=== PATIENT | female | born 1985 ===

== ENCOUNTER 2019-03-09 19:02 | Observation (INO) | payer MEDICAID ==
[2019-03-09 19:02] VITALS: BMI 24.7
[2019-03-09] MEDS ORDERED: Sucralfate 1 gm/10 ml Oral Susp UD PO STA (19:26)
--- NOTE | 2019-03-09 19:26 | C.PDOC ---
History Of Present Illness 33 year old female presents to the ED c/o epigastric abdominal pain associated with diarrhea that started 4 hours [employer]. Patient reports she has history of gastritis. Patient denies fever, chills, vomit, back pain, dysuria, rash, recent travel, sick contacts. Chief Complaint (Nursing): Abdominal Pain History Per: Patient History/Exam Limitations: no limitations Onset/Duration Of Symptoms: Hrs (4) Current Symptoms Are (Timing): Still Present Location Of Pain/Discomfort: Epigastric Radiation Of Pain To:: None Quality Of Discomfort: "Pain" Associated Symptoms: Diarrhea. denies: Nausea, Vomiting, Constipation, Urinary Symptoms Recent travel outside of the [place]: No Additional History Per: Patient Past Medical History Reviewed: Historical Data, Nursing Documentation, Vital Signs Vital Signs: Last Vital Signs Temp 99.1 F 03/09/19 19:13 Pulse 84 03/09/19 19:13 Resp 18 03/09/19 19:13 BP 123/83 03/09/19 19:13 Pulse Ox 100 03/09/19 19:13 - Medical History PMH: Gastritis Denies: Chronic Kidney Disease Surgical History: No Surg Hx - [facility] Procedures LOW CERVICAL (06/25/14) Family History: States: Unknown Family Hx - Social History Hx Tobacco Use: No Hx Alcohol Use: No Hx Substance Use: No - Immunization History Hx Tetanus Toxoid Vaccination: No Hx Influenza Vaccination: No Hx Pneumococcal Vaccination: No Review Of Systems Constitutional: Negative for: Fever, Chills Respiratory: Negative for: Shortness of Breath Gastrointestinal: Positive for: Abdominal Pain, Diarrhea. Negative for: Nausea, Vomiting Genitourinary: Negative for: Dysuria Musculoskeletal: Negative for: Back Pain Skin: Negative for: Rash Physical Exam - Physical Exam Appears: Non-toxic, No Acute Distress Skin: Normal Color, Warm, Dry Head: Atraumatic, Normacephalic Eye(s): bilateral: Normal Inspection Oral Mucosa: Moist Neck: Normal ROM, Supple Chest: Symmetrical Cardiovascular: Rhythm Regular Respiratory: Normal Breath Sounds, No Rales, No Rhonchi, No Wheezing Gastrointestinal/Abdominal: Soft, Tenderness (epigastric and RUQ), No Guarding, No Rebound Back: No CVA Tenderness Extremity: Normal ROM, No Tenderness, No Swelling Neurological/Psych: Oriented x3, Normal Speech, Normal Cognition Gait: Steady ED Course And Treatment - Laboratory Results Result Diagrams: 03/09/19 20:03 03/09/19 20:03 O2 Sat by Pulse Oximetry: 100 (ON RA) Pulse Ox Interpretation: Normal - CT Scan/US CT abd/pelvis Other Rad Studies (CT/US): Read By Radiologist, Radiology Report Reviewed CT/US Interpretation: EXAM: CT Abdomen and Pelvis with IV contrast. CLINICAL HISTORY: Epigastric pain. TECHNIQUE: Axial computed tomography images of the abdomen and pelvis with intravenous contrast. DLP 389.03. CONTRAST: With; 100MLS VISI 320. COMPARISON: None provided. FINDINGS: LUNG BASES: The lung bases appear clear. No pleural effusions are seen. LIVER: Unremarkable. GALLBLADDER AND BILE DUCTS: The gallbladder appears within normal limits. No radioopaque gallstones are seen. No biliary ductal dilatation is evident. PANCREAS: Unremarkable. SPLEEN: Unremarkable. ADRENAL GLANDS: Unremarkable. KIDNEYS, URETERS, AND BLADDER: The kidneys appear within normal limits. There is no hydronephrosis or hydroureter. No urinary calculi are seen. STOMACH AND BOWEL: Multiple dilated proximal jejunal loops of bowel are present, without discrete transition zone. Findings may be on the basis of small bowel ileus, however, short interval continued follow-up is recommended. No evidence suggesting enteritis or colitis. APPENDIX: No evidence of acute appendicitis on CT examination. PERITONEUM: No free fluid. No free air. LYMPH NODES: No lymphadenopathy is evident. REPRODUCTIVE: Unremarkable as visualized. VASCULATURE: No evidence of abdominal aortic aneurysm. BONES: No aggressive appearing osseous lesion. No acute osseous pathology evident. IMPRESSION: Dilatation of multiple proximal jejunal loops of bowel, without discrete transition zone. Findings may be related to ileus, however, short interval follow-up is recommended. . Electronically signed on Mar 09, 2019 10:33:46 PM EDT by: Teodora Sales M.D., Certified by [facility], [facility] Medical Decision Making Medical Decision Making: Plan: * CT abd/pelvis * Labs * Carafate 1 gm PO * Protonix 40 mg IVP * IV fluids * UA Disposition Discussed With : Jose Mohamud Doctor Will See Patient In The: Hospital Counseled Patient/Family Regarding: Diagnosis - Disposition Disposition: HOSPITALIZED Disposition Time: 23:12 Condition: STABLE Forms: [employer] ([place]an) - POA Present On Arrival: None - Clinical Impression Clinical Impression: Abdominal pain, Ileus, unspecified - Scribe Statement The provider has reviewed the documentation as recorded by the Scribe Rachid Antony All medical record entries made by the Narendraibe were at my direction and personally dictated by me. I have reviewed the chart and agree that the record accurately reflects my personal performance of the history, physical exam, medical decision making, and the department course for this patient. I have also personally directed, reviewed, and agree with the discharge instructions and disposition.
[2019-03-09] MEDS: Sodium Chloride 0.9% 1,000 ML IV ONE (19:30)
[2019-03-09 20:08] LABS: BASO # 0.1 K/uL (0.0-0.2); BASO % 0.8 % (0.0-2.0); EOS # 0.2 K/uL (0.0-0.7); EOS % 2.1 % (0.0-4.0); HEMOGLOBIN 14.3 g/dL (11.0-16.0); LYMPH # 1.5 K/uL (1.0-4.3); LYMPH % 20.9 % (20.0-40.0); MEAN CORPUSCULAR HEMOGLOBIN 26.7 pg (27.0-31.0); MEAN CORPUSCULAR HGB CONC 32.3 g/dL (33.0-37.0); MEAN PLATELET VOLUME 9.2 fL (7.2-11.7); MONO # 0.6 K/uL (0.0-0.8); MONO % 8.7 % (0.0-10.0); NEUT # 4.9 K/uL (1.8-7.0); NEUT % 67.5 % (50.0-75.0); RBC 5.38 Mil/uL (3.80-5.20); RED CELL DISTRIBUTION WIDTH 12.7 % (11.5-14.5); WHITE BLOOD COUNT 7.2 K/uL (4.8-10.8)
[2019-03-09 20:14] LABS: MEAN CELL VOLUME 82.5 fL (81.0-99.0)
[2019-03-09 20:25] LABS: HCG,QUALITATIVE URINE NEGATIVE (NEGATIVE)
[2019-03-09 20:29] LABS: SQUAMOUS EPITHIAL 7 /hpf (0-5); URINE BACTERIA RARE (<OCC)
[2019-03-09 20:33] LABS: URINE BILIRUBIN NEGATIVE (NEGATIVE); URINE BLOOD NEGATIVE (NEGATIVE); URINE CLARITY CLEAR (Clear); URINE COLOR YELLOW (YELLOW); URINE GLUCOSE (UA) NEGATIVE (Normal); URINE LEUKOCYTE ESTERASE NEGATIVE Leu/uL (Negative); URINE PROTEIN NEGATIVE (NEGATIVE); URINE UROBILINOGEN 0.2 mg/dL (0.2-1.0)
[2019-03-09 20:35] LABS: ALB/GLOB RATIO 1.4 (1.0-2.1); ALBUMIN 4.8 g/dL (3.5-5.0); ALT/SGPT 23 U/L (9-52); AST/SGOT 40 U/L (14-36); BLOOD UREA NITROGEN 10 mg/dL (7-17); CALCIUM 9.6 mg/dl (8.6-10.4); GFR NON-AFRICAN AMERICAN > 60; LIPASE 58 U/L (23-300)
[2019-03-09] MEDS ORDERED: Iodixanol 320 MG/ML 100 ML BOTTLE IV ONE (20:59)
[2019-03-09] MEDS ORDERED: Sodium Chloride 0.9% 1,000 ML IV SCH (23:45)
[2019-03-09 23:55] VITALS: RESP 20
--- NOTE | 2019-03-10 00:01 | CP.PCM.HP ---
<Kaht Ma - Last Filed: 03/10/19 00:14> History of Present Illness - History of Present Illness History of Present Illness: cc: "stomach ache" Ms. Morris is a Japanese speaking 33 year old female with a PMH of gastritis here today after multiple boughts of vomiting and diarrhea over the last three days of worsening epigastric pain. She took her home omeprazole daily, but the epigastric pain worsened to 8/10 today. She attempted to eat breakfast and lunch since she was hungry, but vomited within 30 min of meal completion. Both episodes were NBNB, but only worsened her epigastric pain. She vomited once more upon insertion of her NGT. 4 hours [employer], she had 2 episodes of non-bloody watery diarrhea which prompted her to come in. Denies headache, chest pain, palpitations, constipation, numbness, tingling, dizziness. PMH: gastritis Med: omeprazole 20mg po daily All: PCN - rash PSxHx: C/section x2, tooth extraction FamHx: mother - osteoporosis SocHx: social EtOH, denies ever tobacco, illicit drugs. Lives with and 2 children. Works in [employer]. Present on Admission - Present on Admission Any Indicators Present on Admission: No Review of Systems - Constitutional Constitutional: Chills, Headache. absent: Fever, Weakness - EENT Eyes: absent: Blurred Vision, Diplopia Ears: absent: Dizziness Nose/Mouth/Throat: absent: Sore Throat - Cardiovascular Cardiovascular: absent: Chest Pain, Claudication, Palpitations - Respiratory Respiratory: absent: Cough, Dyspnea - Gastrointestinal Gastrointestinal: Abdominal Pain, Diarrhea, Nausea, Vomiting. absent: Coffee Ground Emesis, Constipation, Hematemesis, Melena - Genitourinary Genitourinary: absent: Difficulty Urinating, Dysuria - Musculoskeletal Musculoskeletal: absent: Arthralgias, Back Pain, Myalgias, Numbness, Tingling - Integumentary Integumentary: absent: Alopecia, Bleeding Lesions, Rash - Neurological Neurological: absent: Convulsions, Numbness, Tingling Past Patient History - Infectious Disease Hx of Infectious Diseases: None - Past Social History Smoking Status: Never Smoked Alcohol: Social Drugs: Denies Home Situation {Lives}: With Family - CARDIAC Hx Cardiac Disorders: No - PULMONARY Hx Respiratory Disorders: No - NEUROLOGICAL Hx Neurological Disorder: No - HEENT Hx HEENT Problems: No - RENAL Hx Chronic Kidney Disease: No - ENDOCRINE/METABOLIC Hx Endocrine Disorders: No - HEMATOLOGICAL/ONCOLOGICAL Hx Blood Disorders: No - INTEGUMENTARY Hx Dermatological Problems: No - MUSCULOSKELETAL/RHEUMATOLOGICAL Hx Musculoskeletal Disorders: No - GASTROINTESTINAL Hx Gastritis: Yes - GENITOURINARY/GYNECOLOGICAL Hx Genitourinary Disorders: No - PSYCHIATRIC Hx Substance Use: No - SURGICAL HISTORY Hx Surgeries: Yes Hx Section: Yes (X2) Other/Comment: WISDOM TOOTH REMOVAL - ANESTHESIA Hx Anesthesia: Yes Meds Allergies/Adverse Reactions: Allergies Allergy/AdvReac Type Severity Reaction Status Date / Time Penicillins Allergy RASH Verified 03/09/19 19:16 Physical Exam - Constitutional Appears: Non-toxic, No Acute Distress - Head Exam Head Exam: ATRAUMATIC, NORMOCEPHALIC - Eye Exam Eye Exam: EOMI, PERRL Pupil Exam: NORMAL ACCOMODATION Additional comments: injected, tearing - ENT Exam ENT Exam: Mucous Membranes Dry Additional comments: NGT on intermittent suction in R nostril - Neck Exam Neck exam: Negative for: Lymphadenopathy, Tenderness, Thyromegaly - Respiratory Exam Respiratory Exam: Clear to Auscultation Bilateral, NORMAL BREATHING PATTERN. absent: Rales, Rhonchi, Wheezes - Cardiovascular Exam Cardiovascular Exam: REGULAR RHYTHM, +S1, +S2. absent: Systolic Murmur - GI/Abdominal Exam GI & Abdominal Exam: Hyperactive Bowel Sounds, Soft, Tenderness. absent: Distended, Guarding, Rebound Additional comments: diminished TTP in epigastric (recent morphine) - Extremities Exam Extremities exam: Positive for: normal capillary refill, pedal pulses present - Back Exam Back exam: absent: CVA tenderness (L), CVA tenderness (R) - Neurological Exam Neurological exam: Alert, CN II-XII Intact, Oriented x3, Reflexes Normal - Psychiatric Exam Psychiatric exam: Normal Affect, Normal Mood - Skin Skin Exam: Dry, Intact, Normal Color, Warm Results - Vital Signs Recent Vital Signs: Last Vital Signs Temp 97.9 F 03/09/19 23:55 Pulse 83 03/09/19 23:55 Resp 20 03/09/19 23:55 BP 110/75 03/09/19 23:55 Pulse Ox 97 03/09/19 23:55 - Labs Result Diagrams: 03/09/19 20:03 03/09/19 20:03 Labs: Laboratory Results - last 24 hr 03/09/19 03/09/19 03/09/19 20:03 20:03 20:03 WBC 7.2 RBC 5.38 H Hgb 14.3 Hct 44.4 MCV 82.5 D MCH 26.7 L MCHC 32.3 L RDW 12.7 Plt Count 265 MPV 9.2 Neut % (Auto) 67.5 Lymph % (Auto) 20.9 [place] % (Auto) 8.7 Eos % (Auto) 2.1 Baso % (Auto) 0.8 Neut # (Auto) 4.9 Lymph # (Auto) 1.5 [place] # (Auto) 0.6 Eos # (Auto) 0.2 Baso # (Auto) 0.1 Sodium 138 Potassium 3.5 L Chloride 105 Carbon Dioxide 24 Anion Gap 12 BUN 10 Creatinine 0.8 Est GFR ( Amer) > 60 Est GFR (Non-Af Amer) > 60 Random Glucose 90 Calcium 9.6 Total Bilirubin 0.5 AST 40 H ALT 23 Alkaline Phosphatase 86 Total Protein 8.2 Albumin 4.8 Globulin 3.4 Albumin/Globulin Ratio 1.4 Lipase 58 Urine Color Yellow Urine Clarity Clear Urine pH 6.0 Ur Specific [place] > 1.030 H Urine Protein Negative Urine Glucose (UA) Negative Urine Ketones Negative Urine Blood Negative Urine Nitrate Negative Urine Bilirubin Negative Urine Urobilinogen 0.2 Ur Leukocyte Esterase Negative Urine WBC (Auto) 1 Urine RBC (Auto) 1 Ur Squamous Epith Cells 7 H Urine Bacteria Rare Urine HCG, Qual Negative Assessment & Plan - Assessment and Plan (Free Text) Assessment: 33yo F PMH gastritis admitted for SBO. Plan: Small Bowel Obstruction CT A/P with IV contrast (03/09): pending read. prelim: dilation of multiple proximal jejunal loops with transition zone UA elevated specific gravity Carafate 1gm po, Protonix 40mg IVP, Toradol 30mg IVP, Morphine 2mg IVP, 1L NS given in ED - f/u CXR to confirm NGT placement - NGT on intermittent suction in place - NS@115 for slightly higher than maintenance - Reglan 10mg IVP q6 prn - Toradol 30mg IVP q6 prn - abx not started at this time since vitals stable and no WBC mounted - General Surgery consulted: Dr. Guido - help appreciated PPx - DVT: SCDs - GI: Protonix 40mg IVP daily - Diet: NPO - IVF: NS@115 d/w Dr. Oneida Ma PGY-1 - Date & Time Date: 03/09/19 Time: 23:30 <Jose Mohamud - Last Filed: 03/10/19 07:02> Results - Vital Signs Recent Vital Signs: Last Vital Signs Temp 97.9 F 03/10/19 00:50 Pulse 79 03/10/19 00:50 Resp 20 03/10/19 00:50 BP 120/80 03/10/19 00:50 Pulse Ox 99 03/10/19 04:38 - Labs Result Diagrams: 03/09/19 20:03 03/09/19 20:03 Labs: Laboratory Results - last 24 hr 03/09/19 03/09/19 03/09/19 20:03 20:03 20:03 WBC 7.2 RBC 5.38 H Hgb 14.3 Hct 44.4 MCV 82.5 D MCH 26.7 L MCHC 32.3 L RDW 12.7 Plt Count 265 MPV 9.2 Neut % (Auto) 67.5 Lymph % (Auto) 20.9 [place] % (Auto) 8.7 Eos % (Auto) 2.1 Baso % (Auto) 0.8 Neut # (Auto) 4.9 Lymph # (Auto) 1.5 [place] # (Auto) 0.6 Eos # (Auto) 0.2 Baso # (Auto) 0.1 Sodium 138 Potassium 3.5 L Chloride 105 Carbon Dioxide 24 Anion Gap 12 BUN 10 Creatinine 0.8 Est GFR ( Amer) > 60 Est GFR (Non-Af Amer) > 60 Random Glucose 90 Calcium 9.6 Total Bilirubin 0.5 AST 40 H ALT 23 Alkaline Phosphatase 86 Total Protein 8.2 Albumin 4.8 Globulin 3.4 Albumin/Globulin Ratio 1.4 Lipase 58 Urine Color Yellow Urine Clarity Clear Urine pH 6.0 Ur Specific [place] > 1.030 H Urine Protein Negative Urine Glucose (UA) Negative Urine Ketones Negative Urine Blood Negative Urine Nitrate Negative Urine Bilirubin Negative Urine Urobilinogen 0.2 Ur Leukocyte Esterase Negative Urine WBC (Auto) 1 Urine RBC (Auto) 1 Ur Squamous Epith Cells 7 H Urine Bacteria Rare Urine HCG, Qual Negative Assessment & Plan - Date & Time Date: 03/10/19 (I have seen and examined the patient. I agree with the findings and plan of care as documented by Dr. Ma. SBO. NGT placed in ED. Symptomatic treatment. Consult to surgery. Monitor for acute changes.) Time: 07:01 Attending/Attestation - Attestation I have personally seen and examined this patient.: Yes I have fully participated in the care of the patient.: Yes I have reviewed all pertinent clinical information: Yes
--- NOTE | 2019-03-10 02:54 | CP.PCM.CON ---
History of Present Illness - History of Present Illness History of Present Illness: Surgery: DR. Guido Reason for consult: ileus on CT scan HPI: Patient is a 33 y/o female who presents with epigastric pain for the past 24hrs. She states the pain progressively got worse and was associated with 3 episodes of nonbloody emesis post meals and nonbloody diarrhea x2 which prompted ER visit. She denies strange food types or sick contacts. She reports associated nausea. Denied f/c. She reports a history of gastritis which she takes omeprazole for chronically however denies prior EGD or colonoscopy. Currently, the patient states her symptoms have completely resolved and feels better. Only pain is throat due to NGT. ED course: patient underwent CT scan which showed dilated proximal bowel, no colitis enteritis or SBO. Finding consistent with ileus. NGT was inserted which induced vomiting and is currently draining clear bilious fluid apprxm 50cc in cannister at time of exam. PMH: gastritis PSH: cesction x2, tooth extraction Social: denies toxic habits Review of Systems - Constitutional Constitutional: absent: Anorexia, Fever - EENT Eyes: absent: Blurred Vision, Change in Vision Nose/Mouth/Throat: absent: Nasal Congestion, Nose Pain - Cardiovascular Cardiovascular: absent: Chest Pain, Dyspnea - Respiratory Respiratory: absent: Cough, Wheezing - Gastrointestinal Gastrointestinal: Abdominal Pain, Diarrhea, Heartburn, Loose Stools, Nausea, Vomiting. absent: Belching, Bloating, Excessive Flatus, Hematemesis, Hematochezia - Genitourinary Genitourinary: absent: Hematuria, Pyuria - Musculoskeletal Musculoskeletal: absent: Myalgias, Tingling - Integumentary Integumentary: absent: Acne, Alopecia - Neurological Neurological: absent: Disequilibrium, Dizziness - Psychiatric Psychiatric: absent: Confusion, Depression - Endocrine Endocrine: absent: Polyphagia, Polyuria - Hematologic/Lymphatic Hematologic: absent: Easy Bleeding, Easy Bruising Past Patient History - Infectious Disease Hx of Infectious Diseases: None - Past Social History Smoking Status: Never Smoked Alcohol: Social Drugs: Denies Home Situation {Lives}: With Family - CARDIAC Hx Cardiac Disorders: No - PULMONARY Hx Respiratory Disorders: No - NEUROLOGICAL Hx Neurological Disorder: No - HEENT Hx HEENT Problems: No - RENAL Hx Chronic Kidney Disease: No - ENDOCRINE/METABOLIC Hx Endocrine Disorders: No - HEMATOLOGICAL/ONCOLOGICAL Hx Blood Disorders: No - INTEGUMENTARY Hx Dermatological Problems: No - MUSCULOSKELETAL/RHEUMATOLOGICAL Hx Musculoskeletal Disorders: No - GASTROINTESTINAL Hx Gastritis: Yes - GENITOURINARY/GYNECOLOGICAL Hx Genitourinary Disorders: No - PSYCHIATRIC Hx Substance Use: No - SURGICAL HISTORY Hx Surgeries: Yes Hx Section: Yes (X2) Other/Comment: WISDOM TOOTH REMOVAL - ANESTHESIA Hx Anesthesia: Yes Meds Allergies/Adverse Reactions: Allergies Allergy/AdvReac Type Severity Reaction Status Date / Time Penicillins Allergy RASH Verified 03/09/19 19:16 - Medications Medications: Current Medications Sodium Chloride (Sodium Chloride 0.9%) 1,000 mls @ 100 mls/hr IV .Q10H ONE Stop: 03/10/19 05:24 Last Admin: 03/09/19 19:30 Dose: 100 mls/hr Sodium Chloride (Sodium Chloride 0.9%) 1,000 mls @ 115 mls/hr IV .[id number] [facility] Last Admin: 03/09/19 23:55 Dose: 115 mls/hr Ketorolac Tromethamine (Toradol) 30 mg IVP Q6 PRN PRN Reason: Pain, moderate (4-7) Metoclopramide HCl (Reglan) 10 mg IVP Q6H PRN PRN Reason: Nausea/Vomiting Pantoprazole Sodium (Protonix Inj) 40 mg IVP DAILY [facility] Physical Exam - Constitutional Appears: Non-toxic, No Acute Distress - Head Exam Head Exam: ATRAUMATIC, NORMOCEPHALIC Additional comments: NGT inserted - Eye Exam Eye Exam: EOMI - ENT Exam ENT Exam: Mucous Membranes Moist - Respiratory Exam Respiratory Exam: NORMAL BREATHING PATTERN. absent: Respiratory Distress - Cardiovascular Exam Cardiovascular Exam: REGULAR RHYTHM. absent: Tachycardia - GI/Abdominal Exam GI & Abdominal Exam: Soft. absent: Distended, Guarding, Hernia, Rebound, Rigid, Tenderness Additional comments: scar well healed - Extremities Exam Extremities exam: Positive for: normal inspection. Negative for: calf tenderness - Neurological Exam Neurological exam: Alert, Oriented x3 - Psychiatric Exam Psychiatric exam: Normal Affect, Normal Mood - Skin Skin Exam: Dry, Normal Color, Warm Results - Vital Signs Recent Vital Signs: Last Vital Signs Temp 97.9 F 03/10/19 00:50 Pulse 79 03/10/19 00:50 Resp 20 03/10/19 00:50 BP 120/80 04/15/19 00:50 Pulse Ox 99 03/10/19 00:50 - Labs Result Diagrams: 03/09/19 20:03 03/09/19 20:03 Labs: Laboratory Results - last 24 hr 03/09/19 03/09/19 03/09/19 20:03 20:03 20:03 WBC 7.2 RBC 5.38 H Hgb 14.3 Hct 44.4 MCV 82.5 D MCH 26.7 L MCHC 32.3 L RDW 12.7 Plt Count 265 MPV 9.2 Neut % (Auto) 67.5 Lymph % (Auto) 20.9 [place] % (Auto) 8.7 Eos % (Auto) 2.1 Baso % (Auto) 0.8 Neut # (Auto) 4.9 Lymph # (Auto) 1.5 [place] # (Auto) 0.6 Eos # (Auto) 0.2 Baso # (Auto) 0.1 Sodium 138 Potassium 3.5 L Chloride 105 Carbon Dioxide 24 Anion Gap 12 BUN 10 Creatinine 0.8 Est GFR ( Amer) > 60 Est GFR (Non-Af Amer) > 60 Random Glucose 90 Calcium 9.6 Total Bilirubin 0.5 AST 40 H ALT 23 Alkaline Phosphatase 86 Total Protein 8.2 Albumin 4.8 Globulin 3.4 Albumin/Globulin Ratio 1.4 Lipase 58 Urine Color Yellow Urine Clarity Clear Urine pH 6.0 Ur Specific [place] > 1.030 H Urine Protein Negative Urine Glucose (UA) Negative Urine Ketones Negative Urine Blood Negative Urine Nitrate Negative Urine Bilirubin Negative Urine Urobilinogen 0.2 Ur Leukocyte Esterase Negative Urine WBC (Auto) 1 Urine RBC (Auto) 1 Ur Squamous Epith Cells 7 H Urine Bacteria Rare Urine HCG, Qual Negative Assessment & Plan - Assessment and Plan (Free Text) Assessment: 33 y/o female w/ epigastric abdominal pain found to have ileus on CT imaging s/p NGT placement Plan: -currently symptoms have resolved -will re-evaluate in am and most likely remove NGT if cont to have bowel function -rec GI evaluation for symptoms and history of gastritis -if diarrhea persists, may consider stool studies -if able to remove NGT can start CLD and ADAT -no acute surgical intervention at this time -further recs per DR. Hay Dorsey PGY4
[2019-03-10 07:44] LABS: BASO % 0.5 % (0.0-2.0); EOS % 0.6 % (0.0-4.0); HEMOGLOBIN 12.5 g/dL (11.0-16.0); LYMPH # 1.3 K/uL (1.0-4.3); MEAN CORPUSCULAR HEMOGLOBIN 27.3 pg (27.0-31.0); MEAN CORPUSCULAR HGB CONC 32.9 g/dL (33.0-37.0); MEAN PLATELET VOLUME 9.2 fL (7.2-11.7); MONO # 0.4 K/uL (0.0-0.8); MONO % 6.8 % (0.0-10.0); NEUT # 4.4 K/uL (1.8-7.0); NEUT % 71.1 % (50.0-75.0); NRBC % 0.1 % (0.0-2.0); RBC 4.58 Mil/uL (3.80-5.20); RED CELL DISTRIBUTION WIDTH 12.8 % (11.5-14.5); WHITE BLOOD COUNT 6.1 K/uL (4.8-10.8)
--- NOTE | 2019-03-10 07:52 | CP.PCM.PN ---
<Aleks Daly - Last Filed: 03/10/19 18:24> Subjective - Date & Time of Evaluation Date of Evaluation: 03/10/19 Time of Evaluation: 08:00 - Subjective Subjective: PGY-[address] Cuba Christianson Patient is seen and examined at bedside. Patient states having pain and discomfort in her throat, patient states is due to NG tube in place. Patient states abdominal pain has improved, reports no new episodes of vomiting. denies fever, chills, chest pain, sob, d/c. NG tube output 550 cc of bilious fluid. Objective - Vital Signs/Intake and Output Vital Signs (last 24 hours): Temp Pulse Resp BP Pulse Ox 97.9 F 79 20 120/80 99 03/10/19 00:50 03/10/19 00:50 03/10/19 00:50 03/10/19 00:50 03/10/19 04:38 - Medications Medications: Current Medications Sodium Chloride (Sodium Chloride 0.9%) 1,000 mls @ 115 mls/hr IV .Q8H42M [facility] Last Admin: 03/09/19 23:55 Dose: 115 mls/hr Ketorolac Tromethamine (Toradol) 30 mg IVP Q6 PRN PRN Reason: Pain, moderate (4-7) Last Admin: 03/10/19 06:34 Dose: 30 mg Metoclopramide HCl (Reglan) 10 mg IVP Q6H PRN PRN Reason: Nausea/Vomiting Pantoprazole Sodium (Protonix Inj) 40 mg IVP DAILY [facility] - Labs Labs: 03/10/19 07:24 03/09/19 20:03 - Constitutional Appears: Non-toxic, No Acute Distress - Head Exam Head Exam: ATRAUMATIC, NORMOCEPHALIC - Eye Exam Eye Exam: EOMI, Normal appearance - ENT Exam ENT Exam: Mucous Membranes Moist, Normal Exam Additional comments: NG tube in place, draining 550 cc of bilious fluid - Neck Exam Neck Exam: Full ROM - Respiratory Exam Respiratory Exam: Clear to Ausculation Bilateral, NORMAL BREATHING PATTERN. absent: Rales, Rhonchi, Wheezes - Cardiovascular Exam Cardiovascular Exam: REGULAR RHYTHM, +S1, +S2 - GI/Abdominal Exam GI & Abdominal Exam: Soft. absent: Distended, Guarding, Rigid, Tenderness Additional comments: BS on right upper quadrant hypoactive BS on lower left and right quadrants. - Back Exam Back Exam: NORMAL INSPECTION - Neurological Exam Neurological Exam: Alert, Awake, Oriented x3 - Psychiatric Exam Psychiatric exam: Anxious - Skin Skin Exam: Dry, Intact, Normal Color, Warm Assessment and Plan - Assessment and Plan (Free Text) Assessment: 33yo F PMH gastritis admitted for SBO Plan: Small Bowel Obstruction CT A/P with IV contrast (03/09): Fluid-filled mildly distended stomach, fluid- filled moderately distended small bowel loops with mucosal enhancement and fluid in the colon most compatible with nonspecific acute infectious/inflammatory gastro enterocolitis. No bowel obstruction. Carafate 1gm po, Protonix 40mg IVP, Toradol 30mg IVP, Morphine 2mg IVP, 1L NS given in ED - f/u CXR to confirm NGT placement - NG tube with tip extending into the stomach. - no leukocytosis no fever, vital signs wnl - Reglan 10mg IVP q6 prn - Toradol 30mg IVP q6 prn - NS@150 - General Surgery consulted: Dr. Guido - D/C NG tube, start clear liquid diet ADAT Hypokalemia - this am 3.4 from 3.5 - KCL 20 meq IV x 1 - replenish as needed - f/u am labs PPx - DVT: SCDs - GI: Protonix 40mg IVP daily - Diet: clear liquid diet, ADAT - IVF: NS@150 cc/hr plan discussed with Dr Cuba Daly, PGY-1 <Cuba Christianson H - Last Filed: 03/11/19 07:11> Objective - Vital Signs/Intake and Output Vital Signs (last 24 hours): Temp Pulse Resp BP Pulse Ox 98.3 F 84 20 113/67 100 03/11/19 00:00 03/11/19 00:00 03/11/19 00:00 03/11/19 00:00 03/11/19 00:00 Intake and Output: 03/11/19 03/11/19 06:59 18:59 Intake Total 1450 Balance 1450 - Medications Medications: Current Medications Sodium Chloride (Sodium Chloride 0.9%) 1,000 mls @ 150 mls/hr IV .Q6H40M [facility] Last Admin: 03/11/19 04:31 Dose: 150 mls/hr Ketorolac Tromethamine (Toradol) 30 mg IVP Q6 PRN PRN Reason: Pain, moderate (4-7) Last Admin: 03/10/19 06:34 Dose: 30 mg Metoclopramide HCl (Reglan) 10 mg IVP Q6H PRN PRN Reason: Nausea/Vomiting Pantoprazole Sodium (Protonix Inj) 40 mg IVP DAILY [facility] Last Admin: 03/10/19 10:50 Dose: 40 mg Pneumococcal Polyvalent Vaccine (Pneumovax 23 Vaccine) 0.5 ml IM .ONCE ONE Stop: 03/11/19 10:01 - Labs Labs: 03/10/19 07:24 03/10/19 07:24 Attending/Attestation - Attestation I have personally seen and examined this patient.: Yes I have fully participated in the care of the patient.: Yes I have reviewed all pertinent clinical information, including history, physical exam and plan: Yes Notes (Text): Medical attending: Patient was seen and examined by me. Reviewed the above note by the resident The patient was not in any acute distress when I came and saw with the medical claims manager The patient was with family at bedside On exam we pressed a lot on her abdomen and she did ok. She was asking for the NGT to be removed She reported that previously she was having pain in the abdominal epigastric and RUQ area however following the NGT this was now resolved and her primary discomfort now was the NGT Later in the day the NGT was removed We did increase her IVF Also CLD for the time being and monitor Cuba Christianson 03/11/19 07:11
[2019-03-10 07:57] LABS: ALB/GLOB RATIO 1.4 (1.0-2.1); ALBUMIN 3.6 g/dL (3.5-5.0); ALT/SGPT 24 U/L (9-52); AST/SGOT 27 U/L (14-36); BLOOD UREA NITROGEN 8 mg/dL (7-17); CALCIUM 8.6 mg/dl (8.6-10.4); GFR NON-AFRICAN AMERICAN > 60
--- NOTE | 2019-03-10 08:43 | RAD ---
Chest x-ray single frontal view HISTORY: NG tube placement. COMPARISON: None available. FINDINGS: NG tube with tip extending into the stomach. Lung spencer are clear. Heart size within normal limits. Curvilinear radiopaque density projects over the right carlos a abdomen. IMPRESSION: NG tube with tip extending into the stomach.
--- NOTE | 2019-03-10 09:31 | CT ---
Date of service: 03/09/2019 PROCEDURE: CT Abdomen and Pelvis with contrast HISTORY: Upper abdominal pain COMPARISON: None available. TECHNIQUE: CT scan of the abdomen and pelvis was performed after administration of intravenous contrast. Oral contrast was not administered. Coronal and sagittal reformatted images were obtained. Contrast dose: 100 mL Visipaque 320 Radiation dose: Total exam DLP = 389.03 mGy-cm. This CT exam was performed using one or more of the following dose reduction techniques: Automated exposure control, adjustment of the mA and/or kV according to patient size, and/or use of iterative reconstruction technique. FINDINGS: LOWER THORAX: The visualized lungs are clear. LIVER: Normal in size with homogeneous enhancement. No gross lesion or ductal dilatation. GALLBLADDER AND BILE DUCTS: Well distended. No calcified gallstones, wall thickening or pericholecystic fluid. PANCREAS: Normal in size with homogeneous enhancement. No gross lesion or ductal dilatation. SPLEEN: Normal in size and appearance. ADRENALS: No discrete nodule. KIDNEYS AND URETERS: Normal in size with homogeneous enhancement. No hydronephrosis. No solid mass. VASCULATURE: No aortic aneurysm. There are no aortic atherosclerotic calcifications or mural plaque present. BOWEL: A fluid-filled distended stomach is identified. There is moderate diffuse dilatation of fluid-filled small bowel loops with mucosal enhancement. There is also fluid-filled colon. There are air-fluid levels in the small bowel and colon. APPENDIX: Normal appendix. PERITONEUM: No free fluid. No free air. LYMPH NODES: No enlarged lymph nodes. BLADDER: Well distended and normal in appearance. REPRODUCTIVE: The uterus is normal in size. BONES: No acute fracture. Within normal limits for the patient's age. OTHER FINDINGS: None. IMPRESSION: Fluid-filled mildly distended stomach, fluid-filled moderately distended small bowel loops with mucosal enhancement and fluid in the colon most compatible with nonspecific acute infectious/inflammatory gastro enterocolitis. No bowel obstruction. A preliminary report was provided by [facility].
[2019-03-10] MEDS: Sodium Chloride 0.9% 1,000 ML IV SCH ×3 (10:51→21:40)
--- NOTE | 2019-03-10 13:35 | CP.PCM.PN ---
Subjective - Date & Time of Evaluation Date of Evaluation: 03/10/19 Time of Evaluation: 13:34 - Subjective Subjective: soft non tender abdomen with audible peristalsis. Ok to remove ngt and start oral fluids Objective - Vital Signs/Intake and Output Vital Signs (last 24 hours): Temp Pulse Resp BP Pulse Ox 99.1 F 88 20 121/77 100 03/10/19 08:09 03/10/19 08:09 03/10/19 08:09 03/10/19 08:09 03/10/19 08:09 - Medications Medications: Current Medications Sodium Chloride (Sodium Chloride 0.9%) 1,000 mls @ 150 mls/hr IV .Q6H40M [facility] Last Admin: 03/10/19 10:51 Dose: 150 mls/hr Ketorolac Tromethamine (Toradol) 30 mg IVP Q6 PRN PRN Reason: Pain, moderate (4-7) Last Admin: 03/10/19 06:34 Dose: 30 mg Metoclopramide HCl (Reglan) 10 mg IVP Q6H PRN PRN Reason: Nausea/Vomiting Pantoprazole Sodium (Protonix Inj) 40 mg IVP DAILY [facility] Last Admin: 03/10/19 10:50 Dose: 40 mg Pneumococcal Polyvalent Vaccine (Pneumovax 23 Vaccine) 0.5 ml IM .ONCE ONE Stop: 03/11/19 10:01 - Labs Labs: 03/10/19 07:24 03/10/19 07:24
[2019-03-11 00:40] VITALS: TEMP 98.3
[2019-03-11] MEDS: Sodium Chloride 0.9% 1,000 ML IV SCH ×3 (04:31→06:30)
[2019-03-11 07:01] LABS: BASO % 0.8 % (0.0-2.0); EOS # 0.1 K/uL (0.0-0.7); EOS % 3.5 % (0.0-4.0); HEMOGLOBIN 12.6 g/dL (11.0-16.0); LYMPH # 1.7 K/uL (1.0-4.3); MEAN CELL VOLUME 82.9 fL (81.0-99.0); MEAN CORPUSCULAR HEMOGLOBIN 27.8 pg (27.0-31.0); MEAN CORPUSCULAR HGB CONC 33.5 g/dL (33.0-37.0); MEAN PLATELET VOLUME 8.9 fL (7.2-11.7); MONO # 0.4 K/uL (0.0-0.8); MONO % 10.7 % (0.0-10.0); NEUT # 1.4 K/uL (1.8-7.0); NRBC % 0.1 % (0.0-2.0); RBC 4.54 Mil/uL (3.80-5.20); WHITE BLOOD COUNT 3.7 K/uL (4.8-10.8)
--- NOTE | 2019-03-11 07:45 | CP.PCM.PN ---
Subjective - Date & Time of Evaluation Date of Evaluation: 03/11/19 Time of Evaluation: 07:42 - Subjective Subjective: Surgery: Dr. Guido Patient doing well. Denies pain, n/v/f/c. Reports appetite. Passing flatus. No diarrhea. Objective - Vital Signs/Intake and Output Vital Signs (last 24 hours): Temp Pulse Resp BP Pulse Ox 98.3 F 84 20 113/67 100 03/11/19 00:00 03/11/19 00:00 03/11/19 00:00 03/11/19 00:00 03/11/19 00:00 Intake and Output: 03/11/19 03/11/19 06:59 18:59 Intake Total 1450 Balance 1450 - Medications Medications: Current Medications Sodium Chloride (Sodium Chloride 0.9%) 1,000 mls @ 150 mls/hr IV .Q6H40M [facility] Last Admin: 03/11/19 04:31 Dose: 150 mls/hr Ketorolac Tromethamine (Toradol) 30 mg IVP Q6 PRN PRN Reason: Pain, moderate (4-7) Last Admin: 03/10/19 06:34 Dose: 30 mg Metoclopramide HCl (Reglan) 10 mg IVP Q6H PRN PRN Reason: Nausea/Vomiting Pantoprazole Sodium (Protonix Inj) 40 mg IVP DAILY [facility] Last Admin: 03/10/19 10:50 Dose: 40 mg Pneumococcal Polyvalent Vaccine (Pneumovax 23 Vaccine) 0.5 ml IM .ONCE ONE Stop: 03/11/19 10:01 - Labs Labs: 03/11/19 06:46 03/10/19 07:24 - Constitutional Appears: Non-toxic, No Acute Distress - Head Exam Head Exam: ATRAUMATIC, NORMOCEPHALIC - Eye Exam Eye Exam: EOMI, Normal appearance - ENT Exam ENT Exam: Mucous Membranes Moist - Respiratory Exam Respiratory Exam: NORMAL BREATHING PATTERN. absent: Respiratory Distress - Cardiovascular Exam Cardiovascular Exam: REGULAR RHYTHM. absent: Tachycardia - GI/Abdominal Exam GI & Abdominal Exam: Soft. absent: Distended, Guarding, Rigid, Tenderness, Rebound Assessment and Plan - Assessment and Plan (Free Text) Assessment: 33 y/o female w/ ileus, resolved Plan: -reg diet, if tolerates is cleared for d/c from surgical standpoint -no surgical intervention -further recs per Dr. Hay Dorsey PGY4
[2019-03-11 07:46] LABS: ALB/GLOB RATIO 1.3 (1.0-2.1); ALBUMIN 3.6 g/dL (3.5-5.0); ALT/SGPT 29 U/L (9-52); AST/SGOT 29 U/L (14-36); BLOOD UREA NITROGEN 5 mg/dL (7-17); CALCIUM 8.7 mg/dl (8.6-10.4); GFR NON-AFRICAN AMERICAN > 60
[2019-03-11 08:21] VITALS: BP 125/84; PULSE 82; O2SAT 95
[2019-03-11] MEDS ORDERED: Pneumococcal 23-Valent Vaccine IM ONE (10:00)
--- NOTE | 2019-03-11 14:33 | CP.PCM.DIS ---
<Aleks Daly - Last Filed: 03/11/19 14:50> Provider - Provider Date of Admission: 03/09/19 23:14 Attending physician: Cuba Christianson DO Consults: 03/09/19 23:42 General Surgery Consult Routine Comment: Consulting Provider: Emmanuel Guido Consulting Physician: Emmanuel Guido Reason for Consult: SBO, abd pain Time Spent in preparation of Discharge (in minutes): 180 Diagnosis - Discharge Diagnosis (1) Abdominal pain Status: Resolved Hospital Course - Lab Results Lab Results: Most Recent Lab Values WBC 3.7 K/uL (4.8-10.8) L 03/11/19 06:46 RBC 4.54 Mil/uL (3.80-5.20) 03/11/19 06:46 Hgb 12.6 g/dL (11.0-16.0) 03/11/19 06:46 Hct 37.6 % (34.0-47.0) 03/11/19 06:46 MCV 82.9 fL (81.0-99.0) 03/11/19 06:46 MCH 27.8 pg (27.0-31.0) 03/11/19 06:46 MCHC 33.5 g/dL (33.0-37.0) 03/11/19 06:46 RDW 13.0 % (11.5-14.5) 03/11/19 06:46 Plt Count 217 K/uL (130-400) 03/11/19 06:46 MPV 8.9 fL (7.2-11.7) 03/11/19 06:46 Neut % (Auto) 39.0 % (50.0-75.0) L 03/11/19 06:46 Lymph % (Auto) 46.0 % (20.0-40.0) H 03/11/19 06:46 [place] % (Auto) 10.7 % (0.0-10.0) H 03/11/19 06:46 Eos % (Auto) 3.5 % (0.0-4.0) 03/11/19 06:46 Baso % (Auto) 0.8 % (0.0-2.0) 03/11/19 06:46 Neut # (Auto) 1.4 K/uL (1.8-7.0) L 03/11/19 06:46 Lymph # (Auto) 1.7 K/uL (1.0-4.3) 03/11/19 06:46 [place] # (Auto) 0.4 K/uL (0.0-0.8) 03/11/19 06:46 Eos # (Auto) 0.1 K/uL (0.0-0.7) 03/11/19 06:46 Baso # (Auto) 0.0 K/uL (0.0-0.2) 03/11/19 06:46 Sodium 139 mmol/L (132-148) 03/11/19 06:46 Potassium 3.7 mmol/L (3.6-5.2) 03/11/19 06:46 Chloride 110 mmol/L (98-107) H 03/11/19 06:46 Carbon Dioxide 23 mmol/L (22-30) 03/11/19 06:46 Anion Gap 10 (10-20) 03/11/19 06:46 BUN 5 mg/dL (7-17) L 03/11/19 06:46 Creatinine 0.8 mg/dL (0.7-1.2) 03/11/19 06:46 Est GFR ( Amer) > 60 03/11/19 06:46 Est GFR (Non-Af Amer) > 60 03/11/19 06:46 Random Glucose 80 mg/dL (65-105) 03/11/19 06:46 Calcium 8.7 mg/dl (8.6-10.4) 03/11/19 06:46 Total Bilirubin 0.4 mg/dL (0.2-1.3) 03/11/19 06:46 AST 29 U/L (14-36) 03/11/19 06:46 ALT 29 U/L (9-52) 03/11/19 06:46 Alkaline Phosphatase 61 U/L (38-126) 03/11/19 06:46 Total Protein 6.4 g/dL (6.3-8.3) 03/11/19 06:46 Albumin 3.6 g/dL (3.5-5.0) 03/11/19 06:46 Globulin 2.8 gm/dL (2.2-3.9) 03/11/19 06:46 Albumin/Globulin Ratio 1.3 (1.0-2.1) 03/11/19 06:46 Lipase 58 U/L (23-300) 03/09/19 20:03 Urine Color Yellow (YELLOW) 03/09/19 20:03 Urine Clarity Clear (Clear) 03/09/19 20:03 Urine pH 6.0 (5.0-8.0) 03/09/19 20:03 Ur Specific [place] > 1.030 (1.003-1.030) H 03/09/19 20:03 Urine Protein Negative mg/dL (NEGATIVE) 03/09/19 20:03 Urine Glucose (UA) Negative mg/dL (Normal) 03/09/19 20:03 Urine Ketones Negative mg/dL (NEGATIVE) 03/09/19 20:03 Urine Blood Negative (NEGATIVE) 03/09/19 20:03 Urine Nitrate Negative (NEGATIVE) 03/09/19 20:03 Urine Bilirubin Negative (NEGATIVE) 03/09/19 20:03 Urine Urobilinogen 0.2 mg/dL (0.2-1.0) 03/09/19 20:03 Ur Leukocyte Esterase Negative Nikita/uL (Negative) 03/09/19 20:03 Urine WBC (Auto) 1 /hpf (0-5) 03/09/19 20:03 Urine RBC (Auto) 1 /hpf (0-3) 03/09/19 20:03 Ur Squamous Epith Cells 7 /hpf (0-5) H 03/09/19 20:03 Urine Bacteria Rare (<OCC) 03/09/19 20:03 Urine HCG, Qual Negative (NEGATIVE) 03/09/19 20:03 - Hospital Course Hospital Course: On admission: Ms. Morris is a Georgian speaking 33 year old female with a PMH of gastritis here today after multiple boughts of vomiting and diarrhea over the last three days of worsening epigastric pain. She took her home omeprazole daily, but the epigastric pain worsened to 8/10 today. She attempted to eat breakfast and lunch since she was hungry, but vomited within 30 min of meal completion. Both episodes were NBNB, but only worsened her epigastric pain. She vomited once more upon insertion of her NGT. 4 hours [employer], she had 2 episodes of non-bloody watery diarrhea which prompted her to come in. Denies headache, chest pain, palpitations, constipation, numbness, tingling, dizziness. On hospitalization: Patient admitted for evaluation of small bowel obstruction, CT A/P w IV contrast showed fluid-filled mildly distended stomach, fluid-filled moderately distended small bowel loops with mucosal enhancement and fluid in the colon most compatible with nonspecific acute infectious/inflammatory gastro enterocolitis. No bowel obstruction. Carafate 1gm po, Protonix 40mg IVP, Toradol 30mg IVP, Morphine 2mg IVP, 1L NS given in ED. NGT placed, confirmed correct position with Cxray. Patient given pain and anti-emetic PRN and IV fluids and placed on NPO for bowel rest. General surgery on board. no surgical intervention, patient symptoms improved, D/c NG tube and advanced diet to CLD, tolerating diet, patient advanced to regular diet, which pt also tolerated. improved abdominal pain, no episodes of nausea, vomiting, passing gas. On discharge: the following instruction given to patient at discharge: Patient is stable to discharge as per Dr Christianson Patient is to resume regular diet and activity as tolerated Patient is to follow up with primary doctor Dr Mace at [facility] 8-10 days after discharge from hospital Patient provided with work note, can return to work on 03/13/2019 Patient will need a colonoscopy if symptoms recur or return, please follow up with Primary doctor If symptoms return or recur, please return to ER immediately This is a short summary of patient hospitalization course, for more info please refer to EMR. - Date & Time of H&P Date of H&P: 03/10/19 Time of H&P: 00:01 Discharge Exam - Head Exam Head Exam: ATRAUMATIC, NORMOCEPHALIC - Eye Exam Eye Exam: EOMI, Normal appearance - ENT Exam ENT Exam: Mucous Membranes Moist - Neck Exam Neck exam: Full Rom - Respiratory Exam Respiratory Exam: Clear to PA & Lateral, NORMAL BREATHING PATTERN, UNREMARKABLE. absent: Rhonchi, Wheezes, Respiratory Distress - Cardiovascular Exam Cardiovascular Exam: REGULAR RHYTHM, +S1, +S2 - GI/Abdominal Exam GI & Abdominal Exam: Normal Bowel Sounds, Soft, Unremarkable. absent: Distended, Guarding, Tenderness - Extremities Exam Extremities exam: full ROM, normal inspection - Neurological Exam Neurological exam: Alert, Normal Gait, Oriented x3 - Psychiatric Exam Psychiatric exam: Normal Affect, Normal Mood - Skin Skin Exam: Dry, Intact, Normal Color, Warm Discharge Plan - Follow Up Plan Condition: STABLE Disposition: HOME/ ROUTINE Instructions: Acute Abdomen (Belly Pain), Adult (DC) Additional Instructions: Patient is stable to discharge as per Dr Christianson Patient is to resume regular diet and activity as tolerated Patient is to follow up with primary doctor Dr Mace at [facility] 8-10 days after discharge from hospital Patient provided with work note, can return to work on 03/13/2019 Patient will need a colonoscopy if symptoms recur or return, please follow up with Primary doctor If symptoms return or recur, please return to ER immediately El paciente es estable para el heriberto segn Dr Christianson El paciente debe reanudar la dieta regular y la actividad segn lo tolere. El paciente debe hacer un seguimiento con el doctor primario, Dr. Mace, en la accin comunitaria de [employer] de 8 a 10 marcum despus del heriberto hospitalaria Paciente provisto de nota de trabajo, puede regresar a trabajar el jueves 03/13/2019 El paciente necesitar k[place]rell colonoscopia si los sntomas reaparecen o regresan, consulte a [place] mdico de cabecera Si los sntomas regresan o se repiten, vuelva a la sapna de emergencias inmediatamente. <Cuba Christianson - Last Filed: 03/11/19 16:05> Provider - Provider Date of Admission: 03/09/19 23:14 Attending physician: Cuba Christianson DO Consults: 03/09/19 23:42 General Surgery Consult Routine Comment: Consulting Provider: Emmanuel Guido Consulting Physician: Emmanuel Guido Reason for Consult: SBO, abd pain Hospital Course - Lab Results Lab Results: Most Recent Lab Values WBC 3.7 K/uL (4.8-10.8) L 03/11/19 06:46 RBC 4.54 Mil/uL (3.80-5.20) 03/11/19 06:46 Hgb 12.6 g/dL (11.0-16.0) 03/11/19 06:46 Hct 37.6 % (34.0-47.0) 03/11/19 06:46 MCV 82.9 fL (81.0-99.0) 03/11/19 06:46 MCH 27.8 pg (27.0-31.0) 03/11/19 06:46 MCHC 33.5 g/dL (33.0-37.0) 03/11/19 06:46 RDW 13.0 % (11.5-14.5) 03/11/19 06:46 Plt Count 217 K/uL (130-400) 03/11/19 06:46 MPV 8.9 fL (7.2-11.7) 03/11/19 06:46 Neut % (Auto) 39.0 % (50.0-75.0) L 03/11/19 06:46 Lymph % (Auto) 46.0 % (20.0-40.0) H 03/11/19 06:46 [place] % (Auto) 10.7 % (0.0-10.0) H 03/11/19 06:46 Eos % (Auto) 3.5 % (0.0-4.0) 03/11/19 06:46 Baso % (Auto) 0.8 % (0.0-2.0) 03/11/19 06:46 Neut # (Auto) 1.4 K/uL (1.8-7.0) L 03/11/19 06:46 Lymph # (Auto) 1.7 K/uL (1.0-4.3) 03/11/19 06:46 [place] # (Auto) 0.4 K/uL (0.0-0.8) 03/11/19 06:46 Eos # (Auto) 0.1 K/uL (0.0-0.7) 03/11/19 06:46 Baso # (Auto) 0.0 K/uL (0.0-0.2) 03/11/19 06:46 Sodium 139 mmol/L (132-148) 03/11/19 06:46 Potassium 3.7 mmol/L (3.6-5.2) 03/11/19 06:46 Chloride 110 mmol/L (98-107) H 03/11/19 06:46 Carbon Dioxide 23 mmol/L (22-30) 03/11/19 06:46 Anion Gap 10 (10-20) 03/11/19 06:46 BUN 5 mg/dL (7-17) L 03/11/19 06:46 Creatinine 0.8 mg/dL (0.7-1.2) 03/11/19 06:46 Est GFR ( Amer) > 60 03/11/19 06:46 Est GFR (Non-Af Amer) > 60 03/11/19 06:46 Random Glucose 80 mg/dL (65-105) 03/11/19 06:46 Calcium 8.7 mg/dl (8.6-10.4) 03/11/19 06:46 Total Bilirubin 0.4 mg/dL (0.2-1.3) 03/11/19 06:46 AST 29 U/L (14-36) 03/11/19 06:46 ALT 29 U/L (9-52) 03/11/19 06:46 Alkaline Phosphatase 61 U/L (38-126) 03/11/19 06:46 Total Protein 6.4 g/dL (6.3-8.3) 03/11/19 06:46 Albumin 3.6 g/dL (3.5-5.0) 03/11/19 06:46 Globulin 2.8 gm/dL (2.2-3.9) 03/11/19 06:46 Albumin/Globulin Ratio 1.3 (1.0-2.1) 03/11/19 06:46 Lipase 58 U/L (23-300) 03/09/19 20:03 Urine Color Yellow (YELLOW) 03/09/19 20:03 Urine Clarity Clear (Clear) 03/09/19 20:03 Urine pH 6.0 (5.0-8.0) 03/09/19 20:03 Ur Specific [place] > 1.030 (1.003-1.030) H 03/09/19 20:03 Urine Protein Negative mg/dL (NEGATIVE) 03/09/19 20:03 Urine Glucose (UA) Negative mg/dL (Normal) 03/09/19 20:03 Urine Ketones Negative mg/dL (NEGATIVE) 03/09/19 20:03 Urine Blood Negative (NEGATIVE) 03/09/19 20:03 Urine Nitrate Negative (NEGATIVE) 03/09/19 20:03 Urine Bilirubin Negative (NEGATIVE) 03/09/19 20:03 Urine Urobilinogen 0.2 mg/dL (0.2-1.0) 03/09/19 20:03 Ur Leukocyte Esterase Negative Nikita/uL (Negative) 03/09/19 20:03 Urine WBC (Auto) 1 /hpf (0-5) 03/09/19 20:03 Urine RBC (Auto) 1 /hpf (0-3) 03/09/19 20:03 Ur Squamous Epith Cells 7 /hpf (0-5) H 03/09/19 20:03 Urine Bacteria Rare (<OCC) 03/09/19 20:03 Urine HCG, Qual Negative (NEGATIVE) 03/09/19 20:03 Attending/Attestation - Attestation I have personally seen and examined this patient.: Yes I have fully participated in the care of the patient.: Yes I have reviewed all pertinent clinical information, including history, physical exam and plan: Yes Notes (Text): 03/11/19 16:02 Medical attending: Patient was seen and examined by me. Agree with the above note by the resident The patient was not in any acute distress when I came and saw her with the medical staff She tolerated her diet very well and she was not having any abdominal pain - minimal throat pain she said from the NGT however much better now. With help of translation we explained to her that if she has recurrent episodes like this then in the future she should see GI for potential colonscopy. Cuba Christianson
== END 2019-03-11 15:58 | disposition home or self-care (01) ==
LOC: C.ER 19:02 → C.9E 23:14 → C.3T 23:45
PROVIDERS: ADMIT Hospitalist; ATTEND Hospitalist
DX: K56.7 Ileus, unspecified (principal); K56.609 Unspecified intestinal obstruction, unspecified as to partial versus complete obstruction; K52.9 Noninfective gastroenteritis and colitis, unspecified
CPT/HCPCS: 36415; 71045; 74177; 80053; 81001; 83690; 84703; 85025; 90471; 90732; 96374; 99285; C9113; G0378; J1885; J2270; J3480; J7030; Q9967